=== PATIENT | female | born 1950 | race Caucasian/White ===

== ENCOUNTER 2022-05-24 11:55 | Observation (INO) ==
--- NOTE | 2022-05-06 11:03 | PAT Medication Instructions ---
Medication Instructions Date of Service May 06, 2022 Home Medications aspirin 81 mg tablet,delayed release 81 mg PO PM bupropion HCl 75 mg tablet 37.5 mg PO PM metoprolol succinate 25 mg capsule sprinkle, ext. release 24 hr 25 mg PO PM tamoxifen 20 mg tablet 20 mg PO PM lorazepam 0.5 mg tablet 0.5 mg PO DAILY PRN zolpidem 5 mg sublingual tablet 5 mg SUBLINGUAL HS clotrimazole-betamethasone 1 %-0.05 % topical cream 1 applic TOPICAL BID PRN diclofenac sodium 1 % topical gel 2 g TOPICAL DAILY Cent[employer] 1 tab PO DAILY ASK your prescriber and surgeon tamoxifen 20 mg tablet 20 mg PO PM STOP taking 24 hours before surgery clotrimazole-betamethasone 1 %-0.05 % topical cream 1 applic TOPICAL BID PRN diclofenac sodium 1 % topical gel 2 g TOPICAL DAILY DO NOT take the morning of surgery Centrum Silver Women 1 tab PO DAILY Take morning of surgery With a small sip of water, OTHERWISE NOTHING TO EAT OR DRINK AFTER MIDNIGHT: lorazepam 0.5 mg tablet 0.5 mg PO DAILY PRN (if needed) Take evening before surgery aspirin 81 mg tablet,delayed release 81 mg PO PM (continue as normal unless told otherwise by surgeon) bupropion HCl 75 mg tablet 37.5 mg PO PM metoprolol succinate 25 mg capsule sprinkle, ext. release 24 hr 25 mg PO PM lorazepam 0.5 mg tablet 0.5 mg PO DAILY PRN (if needed) zolpidem 5 mg sublingual tablet 5 mg SUBLINGUAL HS Other Notes If you have any questions please call us at [phone] or [phone] or [phone] or [phone]
--- NOTE | 2022-05-08 13:27 | Anesthesiology Consultation ---
Date of Service May 08, 2022 Assessment & Plan (1) Encounter for pre-operative examination: - COVID screening: Per assessment on 05/08/2022: Travel screen negative, no known COVID-19 positive contacts or current COVID-19 related symptoms in past 2 weeks. Pt vaccinated. Surgeon arranging preop COVID testing, scheduled 05/22/2022. Awaiting results. Chart Review Chart Review: Patient seen in Pre Admission Testing Teaching & Discussion Pre-Anesthesia Teaching/Discussion Notes: Instructed NPO after midnight before surgery, except medications with 15 cc of water. Medication instructions provid ed according to the PAT guidelines. History Surgery Operation Date: 05/24/22 14:20 Proposed Procedures p Left Total Knee Arthroplasty - Sterling Nicolas, Height/Weight Height: 5 ft 3 in Weight: 99.7 kg Allergies Allergy/AdvReac Type Severity Reaction Status Date / Time adhesive tape Allergy Intermediate Rash Verified 05/06/22 08:30 Medications Home Medications Medication Instructions Recorded Confirmed Last Taken aspirin 81 mg tablet,delayed 81 mg PO PM 11/10/18 05/06/22 Unknown release bupropion HCl 75 mg tablet 37.5 mg PO PM tab 11/10/18 05/06/22 Unknown metoprolol succinate 25 mg capsule 25 mg PO PM 11/10/18 05/06/22 Unknown sprinkle, ext. release 24 hr tamoxifen 20 mg tablet 20 mg PO PM 02/12/19 05/06/22 Unknown lorazepam 0.5 mg tablet 0.5 mg PO DAILY PRN 04/24/22 05/06/22 Unknown zolpidem 5 mg sublingual tablet 5 mg SUBLINGUAL HS 04/24/22 05/06/22 Unknown clotrimazole-betamethasone 1 1 applic TOPICAL BID PRN 05/06/22 05/06/22 Unknown %-0.05 % topical cream diclofenac sodium 1 % topical gel 2 g TOPICAL DAILY 05/06/22 05/06/22 Unknown multivit with 1 tab PO DAILY 05/06/22 05/06/22 Unknown tvemuobe-eixw-BZ-lutein 8 mg iron-400 mcg-300 mcg tablet (Centrum Silver Women) Past Medical History Medical History (Updated 05/08/22 @ 14:14 by Deena Mandujano PA-C) Depression History of skin cancer Basal and Squamous Cell - Back, Arms, Face, Lip Hypertension controlled, stable per pt Osteoarthritis Slow to wake up after anesthesia Stress incontinence SVT (supraventricular tachycardia) 2019 > with ablation > [facility] Patient denies h/o stroke, seizures, heart attack, heart failure, DM, blood clots or blood transfusions. Exercise / Class Metabolic Activity III < 4 Walking/Shop/Light housework (denies CP or SOB ) Past Family History Family History Mother , Passed age 62 of [place] No problems noted. Sister No problems noted. Daughter No problems noted. Son No problems noted. Son No problems noted. 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-denies limb restriction History of partial hysterectomy 1982 History of tooth extraction History of varicose vein stripping 1985 Hx of partial mastectomy right-denies limb restriction Past Anesthesia History No Family Hx of Anesthesia Complications and Other (slow to wake up, denies re- intubation or unanticipated hospitalization) History of PONV No Hx of PONV and Hx of Motion Sickness Social History Smoking Status: Never smoker Do You Dip or Chew Tobacco: No Hx Alcohol Use: Yes alcohol intake frequency: holidays/special occasions only Hx Substance Use: No substance use type: does not use Review of Systems Snoring, denies witnessed apneas. Patient denies chest pain, shortness of breath, dyspnea on exertion, reflux, fever, chills, cough, wheezing, or palpitations. Physical Exam Vital Signs Vitals BP 110/72 P 76 TEMP 98.8 SP02 95% on RA RESP 16 Physical Full cervical extension range of motion without pain TMD 3.5 finger breaths Mallampati Score 3 Dentition: intact, several missing teeth, several implants upper and lower front teeth; denies chipped or loose teeth, caps/crowns Lungs: normal respiratory effort. Clear throughout to auscultation, no adventitious breath sounds Cardiac: regular rate and rhythm, no murmurs noted Carotid arteries: negative bruit bilat Lab Results Anesthesia Preop Results Results Anesthesia Widget: WBC 9.18 K/uL (4.8-10.8) 05/08/22 Hgb 13.2 g/dL (12.0-16.0) 05/08/22 Hct 39.6 % (37-47) 05/08/22 Plt 194 K/uL (130-400) 05/08/22 Na 139 mmol/L (136-145) 05/08/22 K 3.5 mmol/L (3.5-5.1) 05/08/22 Cl 108 mmol/L (98-107) H 05/08/22 CO2 24 mmol/L (21-32) 05/08/22 BUN 16 mg/dl (6-23) 05/08/22 Creat 0.94 mg/dl (0.6-1.2) 05/08/22 Glucose Level 154 mg/dl (70-99(Fasting)) H 05/08/22 PT 10.6 Seconds (9.0-12.0) 05/08/22 PTT 25.8 Seconds (21.0-31.0) 05/08/22 INR 1.0 (0.9-1.1) 05/08/22 Blood Type A Negative 05/08/22 Antibody Screen NEGATIVE 05/08/22 Testing Electrocardiogram Date: 05/08/22 NSR, rate 75 bpm Chest X-Ray Date: 05/08/22 FINDINGS: Lung volumes are normal. Lungs are clear. There is no pneumothorax or pleural effusion. Cardiac size is normal. Mediastinal contours are normal. There is no evidence for pulmonary edema. IMPRESSION: No acute cardiopulmonary findings.
--- NOTE | 2022-05-23 12:15 | History & Physical Report ---
Date of Service May 23, 2022 Assessment & Plan (1) Osteoarthritis of left knee: We will proceed with a left total knee arthroplasty. Postoperatively she will be started on aspirin for DVT prophylaxis. She will be kept overnight for postop medical management. She plans to use energy physical therapy upon discharge. History of Present Illness Chief Complaint: Osteoarthritis left knee. Primary Care Provider: Bereket Wall is a pleasant 71-year-old female who is been dealing with chronic worsening left knee pain. X-rays and clinical examination have been diagnostic for advanced arthritis of the left knee. After failing conservative treatment, she has elected to proceed with a left total knee arthroplasty.. Allergies Allergy/AdvReac Type Severity Reaction Status Date / Time adhesive tape Allergy Intermediate Rash Verified 05/06/22 08:30 Home Medications Medication Instructions Recorded Confirmed Type aspirin 81 mg tablet,delayed 81 mg PO PM 11/10/18 05/06/22 History release bupropion HCl 75 mg tablet 37.5 mg PO PM tab 11/10/18 05/06/22 History metoprolol succinate 25 mg capsule 25 mg PO PM 11/10/18 05/06/22 History sprinkle, ext. release 24 hr tamoxifen 20 mg tablet 20 mg PO PM 02/12/19 05/06/22 History lorazepam 0.5 mg tablet 0.5 mg PO DAILY PRN 04/24/22 05/06/22 History zolpidem 5 mg sublingual tablet 5 mg SUBLINGUAL HS 04/24/22 05/06/22 History clotrimazole-betamethasone 1 1 applic TOPICAL BID PRN 05/06/22 05/06/22 History %-0.05 % topical cream diclofenac sodium 1 % topical gel 2 g TOPICAL DAILY 05/06/22 05/06/22 History multivit with 1 tab PO DAILY 05/06/22 05/06/22 History sxglvavi-xaac-VX-lutein 8 mg iron-400 mcg-300 mcg tablet (Centrum Silver Women) Past Med/Surg History Medical History Depression History of skin cancer Basal and Squamous Cell - Back, Arms, Face, Lip Hypertension controlled, stable per pt Osteoarthritis Slow to wake up after anesthesia Stress incontinence SVT (supraventricular tachycardia) 2019 > with ablation > [facility] Surgical History History of appendectomy 1967 History of cardiac radiofrequency ablation for SVT 2019 History of cataract extraction bilat History 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 Sister No problems noted. Daughter No problems noted. Son No problems noted. Son No problems noted. Social History Smoking Status: Never smoker Second Hand Exposure: No; Hx Alcohol Use: Yes Hx Substance Use: No Preferred Language: Guinean Communication Ability: Effective Visual Impairment: Limited Hearing Ability: Normal Drone Pilot Required: No Beliefs That Will Affect Care: None marital status: Current Living Situation: Alone current occupational status: retired current occupation: Retired Caregiver Feels Safe at Home: Yes caffeine: Yes (0.5 cup/day ) during the past year weight has: increased > 10 lbs Assistive Devices: Denture - Upper, Denture - Lower and Glasses Review of Systems All systems reviewed & are unremarkable except as noted in HPI & below. Physical Exam On physical examination of the left knee, she has a slight varus deformity. She has tenderness palpation of the distal medial femoral condyle. She has a trace effusion. Constitutional WD/WN, vitals as above Eyes PERRL, conjunctivae normal, anicteric sclerae ENMT external ear and nose normal, oropharynx normal Neck trachea midline, no thyromegaly Respiratory normal respiratory effort Cardiovascular RRR, no murmur, no edema Gastrointestinal (Abdomen) normal bowel sounds, soft, nontender, no hepatosplenomegaly Psychiatric A+Ox3, euthymic affect Results & Data Results & Data Laboratory Results . Diagnostic Findings X-rays of the left knee show advanced osteoarthritis with joint space narrowing, osteophyte formation, and ssdd-mb-ogid articulation. PG Care Time/CCT Total # of Minutes Spent Total Time Spent with Patient: Total time spent is greater than 50% in coordination of care (as documented) at patient's floor/unit and/or counseling patient: Coding Level of Care Code None Diagnoses Osteoarthritis of left knee M17.12
--- NOTE | 2022-05-24 11:53 | History & Physical Bridge Note ---
Date of Service May 24, 2022 History & Physical Bridge Note I have examined the patient, reviewed the History & Physical and in the interval since the performance of the History & Physical I have noted the following changes of clinical significance: no changes noted
[~2022-05-24 11:55] MED LIST: ACETAMINOPHEN 500 MG TAB PO SCH; BUPIVACAINE 0.25% 30 ML VIAL ONE; BUPIVACAINE 0.5 % 5 MG/1 ML PF 10ML VIAL ONE; DEXAMETHASONE SOD INJ 4 MG/ML VIAL ONE; EPINEPHrine INJ 1 MG/ML AMP ONE; GABAPENTIN 300 MG CAP PO SCH; Ketorolac (*for OR use only*) 30 MG, dexAMETHasone 4 MG, KETAMINE HCL (**OR use only) 1... INFIL SCH; LR 500ML BOLUS, THEN 15ML/HR IV SCH; LR 60ML/HR IV SCH; TRANEXAMIC ACID 1,000 MG **IV Intra-op IV SCH; TRANEXAMIC ACID 1,000 MG **IV Pre-op IV SCH; ceFAZolin 2000MG 2,000 MG/15 ML SYR IV SCH; dexAMETHasone 4 MG TAB PO SCH
[2022-05-24] MEDS ORDERED: LIDOCAINE 2% 2 ML VIAL/AMP(20MG/ML) INFIL ONE (12:35)
[2022-05-24] MEDS ORDERED: PROPOFOL IV EMULSION 10 MG/ML 20 ML VIAL IV ONE (12:35)
[2022-05-24] MEDS ORDERED: MIDAZOLAM HCL 1 MG/ML 2ML VIAL ONE (12:36)
[2022-05-24] MEDS ORDERED: fentaNYL citrate 100 MCG/2 ML VIAL ONE (12:36)
[2022-05-24] MEDS ORDERED: ePHEDrine sulfate 50 MG/ML AMP IV PRN (13:05)
[2022-05-24] MEDS ORDERED: HYDROmorphone INJ 1 MG/ML SYRINGE IV PRN (13:05)
[2022-05-24] MEDS ORDERED: KETOROLAC 30 MG/ML VIAL IV PRN (13:05)
[2022-05-24] MEDS ORDERED: ONDANSETRON INJ 2 MG/ML 2 ML VIAL IV PRN ×2 (13:05→16:06)
[2022-05-24] MEDS ORDERED: ATROPINE SULFATE 0.1 MG/ML 10ML SYR IV PRN (13:05)
[2022-05-24] MEDS ORDERED: ROPIVACAINE 0.5% 5 MG/ML 30 ML VIAL ONE (13:06)
[2022-05-24] MEDS ORDERED: ORTHO JOINT ANESTHETIC ONE (13:09)
[2022-05-24] MEDS ORDERED: ONDANSETRON INJ 2 MG/ML 2 ML VIAL ONE (13:45)
--- NOTE | 2022-05-24 14:47 | Operative Report ---
PG Post Operative Report Pre & Post Diagnosis Operation Date: 05/24/22 14:10 Pre-Op Diagnosis: Left Knee Osteoarthritis Post-Op Diagnosis: Left Knee Osteoarthritis I identified the patient and participated in the time-out.: Yes Procedure Operation Date: 05/24/22 14:10 Actual Procedures p Left Total Knee Arthroplasty - Sterling Nicolas DO Surgeon Sterling Nicolas DO Instrumentation Manager Sterling Vergara PAC Estimated Blood Loss 20 Findings Consistent with Post-Op Diagnosis Specimens Left femoral and tibial bone Complications none Disposition Disposition: Recovery Room Description of Procedure Implants used: I used a Seema Persona total knee arthroplasty system with a size 8 narrow femur, D tibia, 31 oval patella, and a size 12 medial congruent polyethylene bearing. All components were cemented in place with Biomet cement. aMe arrived [facility] for the above procedure. She was seen in the preoperative holding area and the operative extremity was identified and signed. She was given a preoperative antibiotic, TXA, a spinal anesthetic and an adductor nerve block. She was taken back to the operating room and laid on the table in supine position. She was given basic sedation. The operative knee was then prepped and draped in sterile fashion. A timeout was done, and the patient and the operative extremity was properly identified. A midline incision was made directly over the patella. Dissection was taken down to the extensor mechanism. A subvastus arthrotomy was used. The medial retinaculum was released and the fat pad was mostly excised. The knee was flexed and the ACL, PCL, and meniscus were removed. A drill was sent down the center of the femoral canal followed by an intramedullary veda. Off that veda a distal femoral cutting block was placed. 9 mm was resected off the distal femur at 5 of valgus. A posterior referencing AP sizing guide was then placed on the distal femur. The femur measured to be a size 8. 2 drill holes were placed in 3 of external rotation. A 4-in-1 cutting block was then impacted into place. Anterior, posterior, and chamfer cuts were then made. The proximal tibia was then exposed. An external tibial alignment guide was placed. A tibial cut guide was then anchored in place and the proximal tibia was then resected. The posterior aspect of the knee was then opened up and any additional meniscus fragments and osteophytes were removed. The tibia measured to be a size D. The tibial plate was then placed in the appropriate rotation and the tibia was drilled and punched. Trial components were then placed. I used a size 12 medial congruent polyethylene insert. The knee was brought through a full range of motion and felt to be stable. The peg holes for the femoral component were then drilled. The patella was then everted and 9 mm was resected off the posterior aspect of the patella. The patella measured to be a size 31 oval. 3 peg holes were then drilled. A trial patella was placed. The knee was once again brought through a full range of motion and felt to be stable. Trial components were then removed. The surrounding soft tissues were injected with 100 cc of an orthopedic pain control cocktail. All components were then cemented into place with Biomet cement. The final polyethylene insert was then snapped into place. Once cement was dry the tourniquet was deflated. Hemostasis was obtained. A dilute betadyne lavage was then done for 3 minutes. The joint was then irrigated with normal saline solution. The subvastus arthrotomy was then closed with #1 Vicryl suture. The skin was closed with 2-0 Vicryl, 3-0V lock suture, and rj. A soft compressive dressing was placed. She was then transferred to a hospital bed and taken to the postanesthesia care unit in stable condition. She tolerated the procedure well. Sterling Vergara PA-C, was present for the entire procedure. He was critical for patient positioning, prepping, draping, retraction exposure, wound closure and application of sterile dressing. I attest to the content of the Intraoperative Record and any orders documented therein. Any exceptions are noted below.
--- NOTE | 2022-05-24 15:12 | XRay Report ---
TWO VIEWS LEFT KNEE CLINICAL HISTORY: Postoperative examination. FINDINGS: AP and crosstable lateral portable views of the left knee are obtained. A left knee arthrop lasty is in near anatomic alignment. There has been undersurface remodeling of the patella. No acute fracture is seen. There are expected postoperative changes around the knee including skin clips, sof t tissue edema, and subcutaneous gas. IMPRESSION: Expected postoperative changes status post left knee arthroplasty. No acute fracture is s een. ACT 112: Negative or not required by law. Electronically signed by: JoséM iguel Caans M.D. 05/24/2022 3:10 PM
--- NOTE | 2022-05-24 15:57 | Anesthesiology Progress Note ---
Date of Service May 24, 2022 Anesthesia Post Procedure Vital Signs Vital Signs: Temp Pulse Pulse Resp BP Pulse Ox 05/24/22 15:45 36.4 C L 64 15 117/74 98 05/24/22 15:35 61 16 105/67 97 05/24/22 15:25 36.3 C L 62 17 113/73 100 05/24/22 15:15 61 16 114/77 99 05/24/22 15:05 65 12 113/67 97 05/24/22 14:57 36.4 C L 71 16 105/68 96 05/24/22 12:12 36.6 C 66 20 149/90 H 98 Transfer of Care Handoff Completed per policy Notes Mental Status: alert / awake / arousable Patient Amnestic to Procedure: Yes Nausea / Vomiting: adequately controlled Pain: adequately controlled Airway Patency, RR, SpO2: stable & adequate BP & HR: stable & adequate Hydration State: stable & adequate Neuraxial Anesthesia: was administered and sensory block is resolving Anesthetic Complications: no major complications apparent
[2022-05-24] MEDS ORDERED: METOCLOPRAMIDE HCL INJ 5 MG/ML 2 ML VIAL IV PRN (16:06)
[2022-05-24] MEDS ORDERED: HYDROmorphone INJ 0.5 MG/0.5 ML SYR IV PRN (16:06)
[2022-05-24] MEDS ORDERED: MAGNESIUM HYDROXIDE SUSP 30 ML UDC PO PRN (16:06)
[2022-05-24] MEDS ORDERED: NALOXONE HCL 0.4 MG/1 ML VIAL/CARP IV PRN (16:06)
[2022-05-24] MEDS ORDERED: LORazepam 0.5 MG TAB PO PRN (16:06)
[2022-05-24] MEDS ORDERED: bisacodyL 10 MG SUPP PR PRN (16:06)
[2022-05-24] MEDS ORDERED: SODIUM CHLORIDE 0.9% 1000ML 1,000 ML IV SCH (16:06)
[2022-05-24] MEDS ORDERED: oxyCODONE HCL IR 5 MG TAB (IMMEDIATE RELEASE) PO PRN (16:06)
[2022-05-24] MEDS ORDERED: CLOTRIMAZOLE/BETAMETHASONE CR 15 GM TUBE EXT PRN (16:06)
[2022-05-24] MEDS: KETOROLAC TROMETHAMINE 15 MG/ML VIAL IV SCH ×2 (17:08→21:56)
[2022-05-24] MEDS: ceFAZolin 2000MG 2,000 MG/15 ML SYR IV SCH (20:38)
[2022-05-24] MEDS ORDERED: METOPROLOL SUCC 25MG EXT REL TAB PO SCH (21:00)
[2022-05-24] MEDS ORDERED: TAMOXIFEN CITRATE 10 MG TABLET PO SCH (21:00)
[2022-05-24] MEDS ORDERED: buPROPion HCl 75 MG TABLET PO SCH (21:00)
[2022-05-24] MEDS ORDERED: ZOLPIDEM TARTRATE 5 MG TAB PO SCH (21:00)
[2022-05-24] MEDS ORDERED: SENNA 8.6 MG TAB PO SCH (21:00)
[2022-05-24] MEDS: ASPIRIN 81 MG ECTAB PO SCH (21:53)
[2022-05-24] MEDS: DOCUSATE SODIUM 100 MG CAP PO SCH (21:54)
[2022-05-24] MEDS: ACETAMINOPHEN 500 MG TAB PO SCH (21:55)
[2022-05-25] MEDS: ACETAMINOPHEN 500 MG TAB PO SCH (05:14)
[2022-05-25] MEDS: KETOROLAC TROMETHAMINE 15 MG/ML VIAL IV SCH ×2 (05:15→10:29)
[2022-05-25] MEDS: ceFAZolin 2000MG 2,000 MG/15 ML SYR IV SCH (05:15)
[2022-05-25 07:34] VITALS: BP 122/70; PULSE 61; TEMP 97.9; O2SAT 98
--- NOTE | 2022-05-25 07:37 | Orthopedic Progress Note ---
Date of Service May 25, 2022 Assessment & Plan (1) Status post left knee replacement: Overall she is doing very well. She is having much pain in the left knee. She is on aspirin for DVT prophylaxis. She will be seen by physical therapy today for ambulation and range of motion exercises. She can be discharged home later today. She will follow-up with orthopedics in 2 weeks. Carol Wall was seen and examined at bedside this morning. Overall she is doing very well. She is not having much pain in the left knee. She has been up and ambulating to the bathroom. She has no complaints. Review of Systems All systems reviewed & are unremarkable except as noted in HPI & below. Physical Exam On physical examination of the left knee, the dressing is clean and dry. Her leg is out full extension. She has active dorsiflexion plantarflexion of her left ankle.. Results & Data Results & Data Laboratory Results . Diagnostic Findings Postoperative x-rays of the left knee show the prosthesis to be in anatomic alignment without any evidence of fracture, screws, or loosening.. PG Care Time/CCT Total # of Minutes Spent Total Time Spent with Patient: Total time spent is greater than 50% in coordination of care (as documented) at patient's floor/unit and/or counseling patient: Coding Level of Care Code 07102 Post Operative Follow-Up Diagnoses Status post left knee replacement Z96.652
--- NOTE | 2022-05-25 07:38 | Discharge Summary ---
Date of Service May 25, 2022 Admission HPI (Per Admitting) Mae is a pleasant 71-year-old female who is been dealing with chronic worsening left knee pain. X-rays and clinical examination have been diagnostic for advanced arthritis of the left knee. After failing conservative treatment, she has elected to proceed with a left total knee arthroplasty.. Admission Exam (Per Admitting) On physical examination of the left knee, she has a slight varus deformity. She has tenderness palpation of the distal medial femoral condyle. She has a trace effusion. Principal Diagnosis Same as "Discharge Diagnosis" noted below under Discharge Instructions. Discharge Exam On physical examination of the left knee, the dressing is clean and dry. Her leg is out full extension. She has active dorsiflexion plantarflexion of her left ankle.. Discharge Data Procedures Performed Operation Date: 05/24/22 14:10 Actual Procedures p Left Total Knee Arthroplasty(Left) - Sterling Nicolas DO Ordered Studies 05/24/22 05:00 US - OR guided needle placemen Routine Hospital Course (1) Status post left knee replacement: On May 24, 2022 Samina arrived at [facility] and underwent a left knee replacement without complication. She had a spinal anesthetic. Postoperatively she was started on aspirin for DVT prophylaxis and transferred to the general orthopedic floors. Her hospital course was uneventful. On postop day #1, her vital signs were stable and her pain was well controlled. She was able to participate well with physical therapy doing ambulation and range of motion exercises. She was then discharged home. She will follow-up with orthopedics in 2 weeks. PG Care Time/CCT Total # of Minutes Spent Total Time Spent with Patient: Total time spent is greater than 50% in coordination of care (as documented) at patient's floor/unit and/or counseling patient: Discharge Plan Discharge Items Patient Disposition: Home - Home Health Services Reason For Visit: POST OP Discharge Diagnosis: Left knee replacement Activity: As commented below Non-emergency contact: Surgeon Call non-emergency contact if: your wound has increased redness and your wound pain has increased Follow-up/Referrals: Bereket José [Primary Care Provider] - Diet: Regular Addtl Attending Provider Instructions: Activity and Therapy Recommendations: * If you are using [facility] then therapy will be provided at your home until they feel you have accomplished all of your goals. * If you are using [facility] then Physical Therapy will be provided until they feel you are ready to start Outpatient Physical Therapy. * If you are not using home therapy then Outpatient Physical Therapy should start about 3-5 days from your day of surgery. Therapy will last about 6-10 weeks * It is important not to put a pillow under your knee when you are relaxing or sleeping. It is just as important to make sure you are getting your knee perfectly straight as it is to regain your knee bend. * You were shown a series of exercises in the hospital. Do these exercises three times each day including the exercises you were shown in physical therapy. * Get up and walk several times each day. For the first four weeks, try not to stand or walk for more than one hour at a time. If you do stand or walk for more than one hour, you will not hurt anything, but your leg will likely swell. * As you feel comfortable, you may change from the walker or crutches to a cane and then to independent walking. Medications: * Narcotic You will likely be sent home from the hospital with a prescription for the narcotic pain medication that worked best throughout your stay. * Aspirin Most patients will be required to take Aspirin 81mg twice a day for 6 weeks after surgery. This is obtained [id number] and a prescription is not necessary. * Other medications may be prescribed for specific circumstances. If you have any questions, please call the office at . * Resume previous home medications unless otherwise instructed TEDs/Elastic Stockings: The white elastic stockings help limit swelling and prevent blood clots from forming in your legs.~ The more you wear them, the more they work. Wear them for six weeks. Dressing Care: The dressing can be changed after physical therapy on postop day #1. Daily dry dressing changes for a few days, especially if the incision is still draining some. If the incision is not draining then you may leave the rj open to air. If there is a little bit of drainage or if the rj are getting stuck on your clothing then cover the incision with a dry dressing. The rj will be removed at your 2 week follow-up appointment. Showering: You may shower 5 days from the day of surgery as long as the incision is no longer draining. You may shower with the rj exposed. Let soapy water run over the rj and pat them dry. Do not scrub or soak the incision. Things To Watch For: * Drainage from the incision site that occurs more than one week after your surgery. * Increased redness at the incision site. * Fever above 102 degrees Fahrenheit. * Unusual chest pain or shortness of breath. * Call [facility] at with any of the above problems Follow-Up Visit: Follow-up with Dr. Nicolas's PA (Sterling Vergara) 2-3 weeks after your day of surgery. He will remove your rj and answer any questions. If you have any additional questions or concerns, Dr Nicolas is usually in the office at the same time and will be available An appointment was probably scheduled when you signed-up for surgery in the office. If you have any questions call Office Instructions: More detailed instructions as well as Frequently Asked Questions were provided in a folder by our office when you signed-up for surgery. Please review these instructions when you get home. If you have any further questions or concerns, please feel free to call the office at [phone] Pending Studies at Discharge: No Stand-Alone Forms: My [facility] Medications and DC Order Prescriptions: New oxycodone-acetaminophen 5-325 mg tablet 1 tab PO Q6H PRN (Reason: pain) Qty: 30 RF: 0 Continued bupropion HCl 75 mg tablet 37.5 mg PO PM RF: 0 metoprolol succinate 25 mg capsule,sprinkle,ER 24hr 25 mg PO PM RF: 0 tamoxifen 20 mg tablet 20 mg PO PM RF: 0 lorazepam 0.5 mg tablet 0.5 mg PO DAILY PRN (Reason: Anxiety) RF: 0 zolpidem 5 mg tablet, sublingual 5 mg sublingual HS RF: 0 clotrimazole-betamethasone 1-0.05 % Cream 1 applic TOPICAL BID PRN (Reason: Rash) RF: 0 Centrum Silver Women 8 mg iron-400 mcg-300 mcg Tablet 1 tab PO DAILY RF: 0 diclofenac sodium [Voltaren] 1 % Gel 2 g TOPICAL DAILY RF: 0 Changed aspirin 81 mg tablet,delayed release (DR/EC) 81 mg PO BID 42 Days Qty: 0 RF: 0 Discharge Orders: Discharge Order (Routine); Ordered 05/25/22 Ordered By: Sterling Nicolas Admission Data Admit Date/Time: 05/24/22 14:57 Attending Provider: Sterling Nicolas Admit Provider: Sterling Nicolas Primary Care Provider: Bereket José
[2022-05-25] MEDS: ASPIRIN 81 MG ECTAB PO SCH (07:57)
[2022-05-25] MEDS ORDERED: dexAMETHasone 4 MG TAB PO SCH (08:00)
[2022-05-25] MEDS: DOCUSATE SODIUM 100 MG CAP PO SCH (08:28)
[2022-05-25] MEDS ORDERED: MULTIVITAMIN TAB PO SCH (09:00)
[2022-05-25] MEDS ORDERED: DICLOFENAC SOD 1% GEL 100 GM TUBE EXT SCH (09:00)
== END 2022-05-25 11:00 | disposition home health service (06) ==
LOC: 3N 11:55 → ASU 11:55

== ENCOUNTER 2025-08-26 06:53 | Observation (INO) ==
--- NOTE | 2025-07-27 10:36 | PAT Medication Instructions ---
Medication Instructions Date of Service July 27, 2025 Home Medications Medication Instructions Recorded cyclobenzaprine 10 mg tablet 10 mg PO TID PRN muscle spasm #20 07/09/22 tabs amoxicillin 500 mg tablet 2,000 mg (4 x 500 mg) PO ONCE PRN 12/06/22 prophylaxis #4 tabs metoprolol succinate 25 mg capsule sprinkle, ext. release 24 hr 25 mg PO QPM lorazepam 0.5 mg tablet 0.5 mg PO HS clotrimazole-betamethasone 1 %-0.05 % topical cream 1 applic topical BID PRN Rash Centrum Silver Women 1 tab PO HS cyclobenzaprine 10 mg tablet 10 mg PO TID PRN muscle spasm ascorbic acid 7.5 mg-vit E 7.5 unit-biotin 1,250 mcg chewable tablet (Juanjose r,Skin,Nails with Biotin) 1 tab PO QAM aspirin 81 mg tablet,delayed release 81 mg PO HS zolpidem 5 mg sublingual tablet 2.5 mg sublingual HS PRN Sleep amoxicillin 500 mg tablet 2,000 mg (4 x 500 mg) PO ONCE PRN prophylaxis cholecalciferol (vitamin D3) 100 mcg (4,000 unit) capsule 800 unit PO QAM digestive no.8-L.acidophilus 50 million cell-pectin 100 mg tablet (Digestive Enzyme (acidophilus, pectin, bromelain)) 2 tab PO DAILY PRN Abdominal Discomfort vitamin B complex 1 cap PO HS bupropion HCl 300 mg 24 hr tablet, extended release 150 mg PO QAM Continue as directed amoxicillin 500 mg tablet 2,000 mg (4 x 500 mg) PO ONCE PRN prophylaxis ASK your prescriber and surgeon aspirin 81 mg tablet,delayed release 81 mg PO HS STOP taking 24 hours before surgery clotrimazole-betamethasone 1 %-0.05 % topical cream 1 applic topical BID PRN R ligia DO NOT take the morning of surgery ascorbic acid 7.5 mg-vit E 7.5 unit-biotin 1,250 mcg chewable tablet (Hair,Skin,Nails with Biotin) 1 tab PO QAM cholecalciferol (vitamin D3) 100 mcg (4,000 unit) capsule 800 unit PO QAM digestive no.8-L.acidophilus 50 million cell-pectin 100 mg tablet (Digestive Enzyme (acidophilus, pectin, bromelain)) 2 tab PO DAILY PRN Abdominal Discomfort Take morning of surgery With a small sip of water, OTHERWISE NOTHING TO EAT OR DRINK AFTER MIDNIGHT: cyclobenzaprine 10 mg tablet 10 mg PO TID PRN muscle spasm (if needed) bupropion HCl 300 mg 24 hr tablet, extended release 150 mg PO QAM Take evening before surgery metoprolol succinate 25 mg capsule sprinkle, ext. release 24 hr 25 mg PO QPM lorazepam 0.5 mg tablet 0.5 mg PO HS Centrum Silver Women 1 tab PO HS cyclobenzaprine 10 mg tablet 10 mg PO TID PRN muscle spasm (if needed) zolpidem 5 mg sublingual tablet 2.5 mg sublingual HS PRN Sleep (if needed) digestive no.8-L.acidophilus 50 million cell-pectin 100 mg tablet (Digestive Enzyme (acidophilus, pectin, bromelain)) 2 tab PO DAILY PRN Abdominal Discomfort (if needed) vitamin B complex 1 cap PO HS Other Notes If you have any questions please call us at [phone] or [phone] or [phone] or [phone]
--- NOTE | 2025-08-01 11:12 | Anesthesiology Consultation ---
Date of Service August 01, 2025 Assessment & Plan (1) Encounter for pre-operative examination: Chart Review Chart Review: Acceptable Risk for Surgery and Patient seen in Pre Admission Testing - Patient is NOT an ideal OPJ candidate- currently 23 hour obs Per PAT appt on 08/01/25, no recent illness/disease exposures, illness related symptoms, or recent illness/disease positive tests. Will leave to surgeon's discretion if preop Covid testing needed Teaching & Discussion Pre-Anesthesia Teaching/Discussion Notes: Instructed NPO after midnight before surgery,except medications with 15 cc of water. Medication instructions provided according to the [facility] guidelines. History Surgery Operation Date: 08/26/25 07:00 Proposed Procedures p Robotic Assisted Right Total Knee Arthroplasty - Sterling Nicolas DO Height/Weight Height: 5 ft 3 in Weight: 100.6 kg Allergies Allergy/AdvReac Type Severity Reaction Status Date / Time adhesive tape Allergy Intermediate contact Verified 07/21/25 14:23 dermatitis latex Allergy Unknown contact Verified 07/21/25 14:23 dermatitis Medications Home Medications Medication Instructions Recorded Confirmed Last Taken metoprolol succinate 25 mg capsule 25 mg PO QPM 11/10/18 07/21/25 05/30/24 sprinkle, ext. release 24 hr clotrimazole-betamethasone 1 1 applic topical BID PRN Rash 05/06/22 07/21/25 05/30/24 %-0.05 % topical cream [id number]-kzol-hqfe 8 mg-folic 400 1 tab PO QAM 05/06/22 08/01/25 05/30/24 mcg-K 50 mcg-lutein 300 mcg tablet (Centrum Silver Women) aspirin 81 mg tablet,delayed 81 mg PO HS 08/08/22 07/21/25 05/27/24 release amoxicillin 500 mg tablet 2,000 mg (4 x 500 mg) PO ONCE PRN 12/06/22 07/21/25 Unknown prophylaxis #4 tabs digestive no.8-L.acidophilus 50 2 tab PO DAILY PRN Abdominal 05/25/24 07/21/25 05/30/24 million cell-pectin 100 mg tablet Discomfort (Digestive Enzyme (acidophilus, pectin, bromelain)) vitamin B complex 1 cap PO QAM 05/25/24 08/01/25 05/30/24 bupropion HCl 300 mg 24 hr tablet, 150 mg PO QAM 05/17/25 07/21/25 Unknown extended release cholecalciferol (vitamin D3) 125 5,000 unit PO QAM 08/01/25 08/01/25 Unknown mcg (5,000 unit) tablet (Vitamin D3) collagen See Rx Instructions .Route .COMPLEX 08/01/25 08/01/25 Unknown zolpidem 10 mg tablet 5 mg PO HS PRN Insomnia 08/01/25 08/01/25 Unknown Past Medical History Medical History Anxiety Depression H/O malignant neoplasm of breast 2017 Right- surgery and xrt - no chemo - pt denies limb restriction (no LN removed) Hearing loss Bilateral Hearing Aids - pt states does not wear History of diverticulitis of colon hx - 2023 - pt denies any issues currently History of DVT (deep vein thrombosis) 1974 after childbirth - no issues since History of kidney stones History of skin cancer Basal and Squamous Cell - Back, Arms, Face, Lip Hypertension controlled, stable per pt Insomnia Obesity Osteoarthritis had cortisone injections in right knee and right hand 2023 Osteoporosis Slow to wake up after anesthesia pt states after mastectomy was 'slow to wake'; no issues with L TKA 05/2022 (spinal) Stress incontinence SVT (supraventricular tachycardia) hx - 2018 > with ablation > [facility] ; no issues since per pt follows only with PCP currently Exercise / Class Metabolic Activity III < 4 Walking/Shop/Light housework (no chest pain or SOB with flat surface ambulation ) Past Family History Family History Mother , Passed age 62 of [place] No problems noted. Sister No problems noted. Daughter No problems noted. Son No problems noted. Son No problems noted. Father Cancer Past Surgical History Surgical History H/O left knee surgery (05/2022) L TKA 05/2022: SAB, regional without issue History of appendectomy (1966) History of cardiac radiofrequency ablation (2018) for SVT History of cataract extraction (2017) Bilateral History of colonoscopy History of lithotripsy History of lumpectomy of right breast (10/12/18) DCIS 2018; pt denies limb restriction (no LN removed) History of partial hysterectomy (1981) History of tooth extraction complete, has implants History of varicose vein stripping (1984) Hx of basal cell carcinoma excision Hx of partial mastectomy (2017) right; pt denies limb restriction (no LN removed) Past Anesthesia History No Hx of Anesthesia Complications (with exception to 2018 mastectomy - slow to wake-just groggy- no reintubation or ICU stay ) and No Family Hx of Anesthesia Complications History of PONV No Hx of PONV and No Hx of Motion Sickness Social History Smoking Status: Never smoker Do You Dip or Chew Tobacco: No Hx Alcohol Use: No alcohol intake frequency: holidays/special occasions only Hx Substance Use: No substance use type: does not use Review of Systems - Pneumonia 06/27/25- treated with antibiotic and steroids - symptoms resolved - Hx of snoring- no hx of sleep study Patient denies chest pain, shortness of breath, dyspnea on exertion, reflux, cough, wheezing, palpitations. No hx of seizures, stroke, [place]. No hx of blood transfusions Physical Exam Vital Signs VITALS BP 135/86 P 58 TEMP 97.6 SP02 96% RESP 16 Constitutional no acute distress ENMT Mouth: no TMJ clicking Thyromental Distance: > or= 3.5 Finger Breadths (3.5) Mallampati Class: III Full dentures on top and bottom Neck + limited neck extension (minimal) Respiratory normal respiratory effort; no respiratory distress Auscultation: lungs clear to auscultation bilaterally; no wheezes Cardiovascular Rate/Rhythm: regular rate and regular rhythm Heart Sounds: no murmur Vessels: no carotid bruit Musculoskeletal Spine: no pain with cervical ROM Extremities: extremities normal to inspection Psychiatric Orientation: alert Lab Results Anesthesia Preop Results Results Anesthesia Widget: WBC 6.03 K/ul (4.8-10.8) 08/01/25 Hgb 13.7 g/dl (12.0-16.0) 08/01/25 Hct 41.1 % (37.0-47.0) 08/01/25 Plt 164 K/uL (130-400) 08/01/25 Na 141 mmol/L (136-145) 08/01/25 K 4.4 mmol/L (3.5-5.1) 08/01/25 Cl 108 mmol/L (98-107) H 08/01/25 CO2 26 mmol/L (21-32) 08/01/25 BUN 17 mg/dl (6-23) 08/01/25 Creat 0.83 mg/dl (0.6-1.2) 08/01/25 Glucose Level 90 mg/dl (70-99(Fasting)) 08/01/25 PT 10.4 Seconds (9.0-12.0) 08/01/25 PTT 29 Seconds (21-31) 08/01/25 INR 1.0 (0.9-1.1) 08/01/25 Blood Type A Negative 08/01/25 Antibody Screen NEGATIVE 08/01/25 Testing Electrocardiogram Date: 08/01/25 Findings: + SB @ (59bpm ) Otherwise normal EKG per cardio Chest X-Ray Date: 08/01/25 Findings: + NAD
--- NOTE | 2025-08-01 11:24 | PAT Medication Instructions ---
Medication Instructions Date of Service August 01, 2025 Home Medications Medication Instructions Recorded amoxicillin 500 mg tablet 2,000 mg (4 x 500 mg) PO ONCE PRN 12/06/22 prophylaxis #4 tabs metoprolol succinate 25 mg capsule sprinkle, ext. release 24 hr 25 mg PO QPM clotrimazole-betamethasone 1 %-0.05 % topical cream 1 applic topical BID PRN Rash jbevroia-efpn-ghvu 8 mg-folic 400 mcg-K 50 mcg-lutein 300 mcg tablet (Centrum Silver Women) 1 tab PO QAM aspirin 81 mg tablet,delayed release 81 mg PO HS amoxicillin 500 mg tablet 2,000 mg (4 x 500 mg) PO ONCE PRN prophylaxis digestive no.8-L.acidophilus 50 million cell-pectin 100 mg tablet (Digestive Enzyme (acidophilus, pectin, bromelain)) 2 tab PO DAILY PRN Abdominal Discomfort vitamin B complex 1 cap PO QAM bupropion HCl 300 mg 24 hr tablet, extended release 150 mg PO QAM cholecalciferol (vitamin D3) 125 mcg (5,000 unit) tablet (Vitamin D3) 5,000 unit PO QAM collagen See Rx Instructions .Route .COMPLEX zolpidem 10 mg tablet 5 mg PO HS PRN Insomnia Continue as directed amoxicillin 500 mg tablet 2,000 mg (4 x 500 mg) PO ONCE PRN prophylaxis STOP taking 2 weeks before surgery collagen See Rx Instructions .Route .COMPLEX STOP taking 24 hours before surgery clotrimazole-betamethasone 1 %-0.05 % topical cream 1 applic topical BID PRN Rash DO NOT take the morning of surgery pmcvacbc-odkt-cskn 8 mg-folic 400 mcg-K 50 mcg-lutein 300 mcg tablet (Centrum Silver Women) 1 tab PO QAM digestive no.8-L.acidophilus 50 million cell-pectin 100 mg tablet (Digestive Enzyme (acidophilus, pectin, bromelain)) 2 tab PO DAILY PRN Abdominal Discomfort vitamin B complex 1 cap PO QAM cholecalciferol (vitamin D3) 125 mcg (5,000 unit) tablet (Vitamin D3) 5,000 unit PO QAM Take morning of surgery With a small sip of water, OTHERWISE NOTHING TO EAT OR DRINK AFTER MIDNIGHT: bupropion HCl 300 mg 24 hr tablet, extended release 150 mg PO QAM Take evening before surgery metoprolol succinate 25 mg capsule sprinkle, ext. release 24 hr 25 mg PO QPM aspirin 81 mg tablet,delayed release 81 mg PO HS (unless surgeon directed otherwise) zolpidem 10 mg tablet 5 mg PO HS PRN Insomnia (if needed) Other Notes If you have any questions please call us at [phone] or [phone] or [phone] or [phone]
--- NOTE | 2025-08-24 15:36 | History & Physical Report ---
Date of Service August 24, 2025 Assessment & Plan (1) Osteoarthritis of right knee: We will proceed with a right total knee arthroplasty. Postoperatively, she will be started on aspirin for DVT prophylaxis and kept overnight in the hospital for postop medical management. She plans to use energy physical therapy at discharge. History of Present Illness Chief Complaint: Osteoarthritis of the right knee. Primary Care Provider: Bereket Wall is a pleasant 74-year-old female who has been dealing with chronic increasing right knee pain. X-rays and clinical exam have been diagnostic for advanced arthritis of the right knee. I did a left knee replacement on her about 3 years ago and she has done well with that. After failing conservative treatment, she has elected to proceed with a right total knee arthroplasty. Allergies Allergy/AdvReac Type Severity Reaction Status Date / Time adhesive tape Allergy Intermediate contact Verified 07/21/25 14:23 dermatitis latex Allergy Unknown contact Verified 07/21/25 14:23 dermatitis Home Medications Medication Instructions Recorded Confirmed Type metoprolol succinate 25 mg capsule 25 mg PO QPM 11/10/18 07/21/25 History sprinkle, ext. release 24 hr clotrimazole-betamethasone 1 1 applic topical BID PRN Rash 05/06/22 07/21/25 History %-0.05 % topical cream fecqnhxg-cxbk-ghwg 8 mg-folic 400 1 tab PO QAM 05/06/22 08/01/25 History mcg-K 50 mcg-lutein 300 mcg tablet (Centrum Silver Women) aspirin 81 mg tablet,delayed 81 mg PO HS 08/08/22 07/21/25 History release amoxicillin 500 mg tablet 2,000 mg (4 x 500 mg) PO ONCE PRN 12/06/22 07/21/25 Rx prophylaxis #4 tabs digestive no.8-L.acidophilus 50 2 tab PO DAILY PRN Abdominal 05/25/24 07/21/25 History million cell-pectin 100 mg tablet Discomfort (Digestive Enzyme (acidophilus, pectin, bromelain)) vitamin B complex 1 cap PO QAM 05/25/24 08/01/25 History bupropion HCl 300 mg 24 hr tablet, 150 mg PO QAM 05/17/25 07/21/25 History extended release cholecalciferol (vitamin D3) 125 5,000 unit PO QAM 08/01/25 08/01/25 History mcg (5,000 unit) tablet (Vitamin D3) collagen See Rx Instructions .Route .COMPLEX 08/01/25 08/01/25 History zolpidem 10 mg tablet 5 mg PO HS PRN Insomnia 08/01/25 08/01/25 History Past Med/Surg History Problem List History of ductal carcinoma in situ (DCIS) of right breast 2018 Breast screening Osteoarthritis of right knee Status post left knee replacement (~05/2022) Encounter for pre-operative examination CMC arthritis Medical History Obesity Hearing loss Bilateral Hearing Aids - pt states does not wear Osteoporosis History of kidney stones History of DVT (deep vein thrombosis) 1973 after childbirth - no issues since Insomnia History of diverticulitis of colon hx - 2023 - pt denies any issues currently Anxiety H/O malignant neoplasm of breast 2018 Right- surgery and xrt - no chemo - pt denies limb restriction (no LN removed) Slow to wake up after anesthesia pt states after mastectomy was 'slow to wake'; no issues with L TKA 05/2022 (spinal) Osteoarthritis had cortisone injections in right knee and right hand 2023 Stress incontinence SVT (supraventricular tachycardia) hx - 2019 > with ablation > [facility], [facility] ; no issues since per pt follows only with PCP currently Depression Hypertension controlled, stable per pt History of skin cancer Basal and Squamous Cell - Back, Arms, Face, Lip Surgical History History of colonoscopy History of lithotripsy Hx of basal cell carcinoma excision H/O left knee surgery (05/2022) L TKA 05/2022: SAB, regional without issue History of tooth extraction complete, has implants History of cardiac radiofrequency ablation (2019) for SVT Hx of partial mastectomy (2017) right; pt denies limb restriction (no LN removed) History of lumpectomy of right breast (10/12/18) DCIS 2018; pt denies limb restriction (no LN removed) History of varicose vein stripping (1984) History of partial hysterectomy (1981) History of appendectomy (1966) History of cataract extraction (2017) Bilateral Family History Mother , Passed age 62 of [place] No problems noted. Sister No problems noted. Daughter No problems noted. Son No problems noted. Son No problems noted. Father Cancer Social History Smoking Status: Never smoker Second Hand Exposure: No; Do You Dip or Chew Tobacco: No; Tobacco Cessation Education Requested by Patient: No Hx Alcohol Use: No Hx Substance Use: No Preferred Language: Wolof Communication Ability: Effective Visual Impairment: Limited Hearing Ability: Normal Christian Counselor Required: No Beliefs That Will Affect Care: None marital status: / Current Living Situation: Family current occupational status: unemployed and retired current occupation: Retired Caregiver How many Children do You have: 3 Other Information That Helps Us Care for You: No Feels Safe at Home: Yes Safety Concerns: Feels Safe At This Time caffeine: Yes (0.5 cup/day ) during the past year weight has: increased > 10 lbs Assistive Devices: Denture - Upper, Denture - Lower, Glasses and Hearing Aid - Bilateral Assistive Devices Comment: has hearing aids but does not wear Review of Systems All systems reviewed & are unremarkable except as noted in HPI & below. Physical Exam On physical exam of the right knee, she has a slight varus deformity. Tenderness to palpation of the distal medial femoral condyle and over the medial joint line.. Constitutional WD/WN, vitals as above Eyes PERRL, conjunctivae normal, anicteric sclerae ENMT external ear and nose normal, oropharynx normal Neck trachea midline, no thyromegaly Respiratory normal respiratory effort Cardiovascular RRR, no murmur, no edema Gastrointestinal (Abdomen) normal bowel sounds, soft, nontender, no hepatosplenomegaly Psychiatric A+Ox3, euthymic affect Results & Data Results & Data Laboratory Results . Diagnostic Findings . PG Care Time/CCT Total # of Minutes Spent Total Time Spent with Patient: Total time spent is greater than 50% in coordination of care (as documented) at patient's floor/unit and/or counseling patient: Coding Level of Care Code None Diagnoses Osteoarthritis of right knee M17.11
--- NOTE | 2025-08-26 06:27 | History & Physical Bridge Note ---
Date of Service August 26, 2025 History & Physical Bridge Note I have examined the patient, reviewed the History & Physical and in the interval since the performance of the History & Physical I have noted the following changes of clinical significance: no changes noted
[~2025-08-26 06:53] MED LIST changes: -ACETAMINOPHEN 500 MG TAB PO SCH; -BUPIVACAINE 0.25% 30 ML VIAL ONE; -BUPIVACAINE 0.5 % 5 MG/1 ML PF 10ML VIAL ONE; -DEXAMETHASONE SOD INJ 4 MG/ML VIAL ONE; -EPINEPHrine INJ 1 MG/ML AMP ONE; -GABAPENTIN 300 MG CAP PO SCH; -Ketorolac (*for OR use only*) 30 MG, dexAMETHasone 4 MG, KETAMINE HCL (**OR use only) 1... INFIL SCH; -LR 500ML BOLUS, THEN 15ML/HR IV SCH; -LR 60ML/HR IV SCH; +ROPIVACAINE 0.5% 5 MG/ML 30 ML VIAL ONE; -TRANEXAMIC ACID 1,000 MG **IV Intra-op IV SCH; -TRANEXAMIC ACID 1,000 MG **IV Pre-op IV SCH; -ceFAZolin 2000MG 2,000 MG/15 ML SYR IV SCH; -dexAMETHasone 4 MG TAB PO SCH
[2025-08-26] MEDS ORDERED: PROPOFOL IV EMULSION 10 MG/ML 20 ML VIAL IV ONE (07:01)
[2025-08-26] MEDS ORDERED: KETAMINE HCL 10MG/ML SYR ONE (07:01)
[2025-08-26] MEDS ORDERED: MIDAZOLAM HCL 1 MG/ML 2ML VIAL ONE (07:01)
[2025-08-26] MEDS ORDERED: ONDANSETRON INJ 2 MG/ML 2 ML VIAL ONE (07:01)
[2025-08-26] MEDS ORDERED: LIDOCAINE 2% 2 ML VIAL/AMP(20MG/ML) INFIL ONE (07:01)
[2025-08-26] MEDS ORDERED: DexMEDEtomidine HCL IV 100 MCG/ML VIAL IV ONE (07:01)
[2025-08-26] MEDS ORDERED: ATROPINE SULFATE 0.1 MG/ML 10ML SYR IV PRN (07:33)
[2025-08-26] MEDS ORDERED: KETOROLAC 30 MG/ML VIAL IV PRN (07:33)
[2025-08-26] MEDS ORDERED: ONDANSETRON INJ 2 MG/ML 2 ML VIAL IV PRN ×2 (07:33→11:26)
[2025-08-26] MEDS ORDERED: HYDROmorphone INJ 1 MG/ML SYRINGE IV PRN (07:33)
[2025-08-26] MEDS: ACETAMINOPHEN 500 MG TAB PO SCH ×2 (07:42→14:01)
[2025-08-26] MEDS: LR 500ML BOLUS, THEN 15ML/HR IV SCH (07:42)
[2025-08-26] MEDS: GABAPENTIN 300 MG CAP PO SCH (07:43)
[2025-08-26] MEDS: FAMOTIDINE 20 MG TAB PO SCH (07:43)
[2025-08-26] MEDS: LR 60ML/HR IV SCH (07:43)
[2025-08-26] MEDS: dexAMETHasone**PF** 10 MG/ML VIAL IV SCH (07:43)
[2025-08-26] MEDS: TRANEXAMIC ACID 1,000 MG **IV Pre-op IV SCH (07:52)
[2025-08-26] MEDS: ORTHO JOINT ANESTHETIC ONE (08:37)
[2025-08-26] MEDS: ROPIV 0.5% 246mg, Ketorolac 30mg, EPINEPHrine 0.5mg in NSS INFIL SCH (08:37)
--- NOTE | 2025-08-26 09:11 | Operative Report ---
PG Post Operative Report Pre & Post Diagnosis Operation Date: 08/26/25 08:00 Pre-Op Diagnosis: Osteoarthritis of right knee Post-Op Diagnosis: Osteoarthritis of right knee I identified the patient and participated in the time-out.: Yes Procedure Operation Date: 08/26/25 08:00 Actual Procedures p Robotic Assisted Right Total Knee Arthroplasty(Right) - Sterling Nicolas DO Surgeon Sterling Nicolas DO Actuary Clerk Rigboerto Galvin PA-C Estimated Blood Loss 30 Findings Consistent with Post-Op Diagnosis Specimens Right femoral and tibial bone Description of Procedure Implants used: I used a Seema Persona total knee arthroplasty system with a size 8 narrow PS femur, D tibia, 32 patella, and a size 14 CPS polyethylene bearing. All components were press-fit in place. Mae arrived [facility] for the above procedure. She was seen in the preoperative holding area and the operative extremity was identified and signed. She was given a preoperative antibiotic, TXA, a spinal anesthetic and an adductor nerve block. She was taken back to the operating room and laid on the table in supine position. She was given basic sedation. The operative knee was then prepped and draped in sterile fashion. A timeout was done, and the patient and the operative extremity was properly identified. A midline incision was made directly over the patella. Dissection was taken down to the extensor mechanism. A medial parapatellar arthrotomy was used. The medial retinaculum was released and the fat pad was mostly excised. The knee was flexed and the ACL, PCL, and meniscus were removed. The alignment of the knee replacement was assisted with a SeemaCylance robotic knee. The femoral array was pinned in the distal femur and the tibial array was pinned using a percutaneous technique in the upper shaft of the tibia. The robot was appropriately calibrated and the structure of the knee was mapped out. The components were then manipulated on the screen to account for any malalignment and to assist in gap balancing. Once I was happy with the placement of the components on the screen, a distal femoral cutting guide was brought in place. The distal femur was then resected. The femur measured to be a size 8. A 4-in-1 cutting block was then put into place by the robot and 2 peg holes were drilled. The 4-in-1 cutting block was then impacted into place and anterior, posterior, and chamfer cuts were made. The cutting block was then brought down to the tibia and pinned into place. The proximal tibia was then resected. The posterior aspect of the knee was then opened up and any additional meniscus fragments and osteophytes were removed. The tibia measured to be a size D. The tibial plate was then placed in the appropriate rotation and the tibia was drilled and punched. Trial components were then placed. The patella was then everted and 9 mm was resected off the posterior aspect of the patella. The patella measured to be a size 32. 3 peg holes were then drilled. A trial patella was placed. A size 14 CPS polyethylene insert was then trialed. The knee was brought through a full range of motion and felt to be stable. Trial components were then removed. The surrounding soft tissues were injected with 100 cc of an orthopedic pain control cocktail. All components were then pr ess-fit into place. The final polyethylene insert was then snapped into place. The tourniquet was deflated. Hemostasis was obtained. A dilute betadyne lavage was then done for 3 minutes. The joint was then irrigated with normal saline solution. The medial parapatellar arthrotomy was then closed with #1 Vicryl suture. The skin was closed with 2-0 Vicryl, 3-0V lock suture, and Jordi Zipline. A soft compressive dressing was placed. She was then transferred to a hospital bed and taken to the postanesthesia care unit in stable condition. She tolerated the procedure well. Rigoberto Galvin PA-C, was present for the entire procedure. He was critical for patient positioning, prepping, draping, retraction exposure, wound closure and application of sterile dressing. I attest to the content of the Intraoperative Record and any orders documented therein. Any exceptions are noted below.
--- NOTE | 2025-08-26 10:03 | XRay Report ---
XR knee RT 1 or 2V routine CLINICAL HISTORY: Surgical Post Op COMPARISON: None FINDINGS: Right knee prosthesis. No hardware complication. There is expected soft tissue gas. IMPRESSION: Unremarkable postoperative exam. ACT 112: Negative or not required by law. Electronically signed by: Ron Diaz M.D. 08/26/2025 10:02 AM
--- NOTE | 2025-08-26 10:35 | Anesthesiology Progress Note ---
Date of Service August 26, 2025 Anesthesia Post Procedure Vital Signs Vital Signs: Temp Pulse Pulse Resp BP Pulse Ox O2 Del Method 08/26/25 10:20 36.4 C L 61 15 120/69 94 Room Air 08/26/25 10:10 62 13 117/70 93 Room Air 08/26/25 10:00 60 13 121/67 93 Room Air 08/26/25 09:50 63 18 113/65 96 Room Air 08/26/25 09:40 66 16 115/72 96 Room Air 08/26/25 09:33 36.0 C L 71 12 111/68 97 Oxymask 08/26/25 07:27 36.5 C 58 L 20 135/83 97 Room Air O2 Flow Rate 08/26/25 10:20 08/26/25 10:10 08/26/25 10:00 08/26/25 09:50 08/26/25 09:40 08/26/25 09:33 6 08/26/25 07:27 Transfer of Care Handoff Completed per policy Notes Mental Status: alert / awake / arousable Patient Amnestic to Procedure: Yes Nausea / Vomiting: adequately controlled Pain: adequately controlled Airway Patency, RR, SpO2: stable & adequate BP & HR: stable & adequate Hydration State: stable & adequate Neuraxial Anesthesia: was administered and sensory block is resolving Anesthetic Complications: no major complications apparent
[2025-08-26] MEDS ORDERED: NALOXONE HCL 0.4 MG/1 ML VIAL/CARP IV PRN (11:26)
[2025-08-26] MEDS ORDERED: HYDROmorphone INJ 0.5 MG/0.5 ML SYR IV PRN (11:26)
[2025-08-26] MEDS ORDERED: METOCLOPRAMIDE HCL INJ 5 MG/ML 2 ML VIAL IV PRN (11:26)
[2025-08-26] MEDS ORDERED: MAGNESIUM HYDROXIDE SUSP 30 ML UDC PO PRN (11:26)
[2025-08-26] MEDS ORDERED: diphenhydrAMINE Capsule 25 MG CAP PO PRN (11:26)
[2025-08-26] MEDS ORDERED: ZOLPIDEM TARTRATE 5 MG TAB PO PRN (11:26)
[2025-08-26] MEDS: KETOROLAC TROMETHAMINE 15 MG/ML VIAL IV SCH (14:02)
[2025-08-26] MEDS: SODIUM CHLORIDE 0.9% 1,000 ML IV SCH (14:02)
[2025-08-26] MEDS: ASPIRIN 81 MG ECTAB PO SCH (21:39)
[2025-08-26] MEDS: METOPROLOL SUCC 25MG EXT REL TAB PO SCH (21:39)
[2025-08-26] MEDS: DOCUSATE SODIUM 100 MG CAP PO SCH (21:40)
[2025-08-26] MEDS: SENNA 8.6 MG TAB PO SCH (21:40)
[2025-08-27 00:05] VITALS: RESP 16
[2025-08-27 04:05] VITALS: TEMP 97.7
--- NOTE | 2025-08-27 07:05 | Orthopedic Progress Note ---
Date of Service August 27, 2025 Assessment & Plan (1) Status post total right knee replacement: Overall she is doing well. She is not having much pain in the right knee. She will be seen by physical therapy today for ambulation and range of motion exercises. The nursing staff can change her dressing after physical therapy. She is on aspirin for DVT prophylaxis. She can be discharged to home later today. She will follow-up with orthopedics in 2 weeks. Carol Wall was seen and examined at bedside this morning. Overall she is doing well. She is not having much pain in her right knee. She has been up and ambulating to the bathroom. She has no complaints.. Review of Systems All systems reviewed & are unremarkable except as noted in HPI & below. Physical Exam On physical exam of the right knee, the dressing is clean and dry. Her leg is out full extension. She has active dorsiflexion and plantarflexion of her right ankle.. Results & Data Results & Data Laboratory Results . Diagnostic Findings Postoperative x-rays of the right knee show the prosthesis to be in anatomic alignment without any evidence of fracture complication, or loosening.. PG Care Time/CCT Total # of Minutes Spent Total Time Spent with Patient: Total time spent is greater than 50% in coordination of care (as documented) at patient's floor/unit and/or counseling patient: Coding Level of Care Code 32548 Post Operative Follow-Up Diagnoses Status post total right knee replacement Z96.651
[2025-08-27 07:44] VITALS: BP 121/75; PULSE 74; O2SAT 96
[2025-08-27] MEDS: MULTIVITAMIN TAB PO SCH (08:06)
[2025-08-27] MEDS: INFLUENZA VACC TS2025-26(65y+)/PF (IIV3) 0.5mL Syr IM ONE (10:27)
== END 2025-08-27 12:09 | disposition home or self-care (01) ==
LOC: ASU 06:53 → PACUINP 06:53 → 3N 13:31